=== PATIENT | male | born 1985 | race Caucasian/White ===

== ENCOUNTER 2016-09-14 17:31 | Emergency (ER) | payer BC ==
[~2016-09-14 17:31] MED LIST: ALBUTEROL17 GM INH; ELIQUIS PO; FLEXERIL10 MG PO; MUSCLE RELAXANT PO; NAPROSYN500 MG PO; NO MEDICATIONS; PERCOCET 7.5MG PO; PREDNISONE PO; ROBITUSSIN100 MG/51 PO; SILVADENE TOP; TESSALON200 MG PO; VOLTAREN75 MG PO; ZANAFLEX4 M1 PO; ZITHROMAX PO
[2016-09-14 18:22] LABS: BASOPHIL# 0.1 X10e3 (0-0.3); BASOPHIL% 0.8 % (0-2.5); EOSINOPHIL# 0.2 X10e3 (0-0.7); EOSINOPHIL% 2.1 % (0.0-7.0); HEMATOCRIT 43.6 % (38.0-50.0); HEMOGLOBIN 14.7 gm/dL (13.0-16.0); LYMPHOCYTE# 3.8 X10e3 (1.0-3.5); LYMPHOCYTE% 35.4 % (17.0-45.0); MEAN CELL VOLUME 91.6 FL (83-96); MEAN CORPUSCULAR HEMOGLOBIN 30.9 PG (28-34); MEAN CORPUSCULAR HGB CONC 33.7 g/dL (30-36); MEAN PLATELET VOLUME 7.6 FL (6.5-11.5); MONOCYTE# 0.7 X10e3 (0-1.0); NEUTROPHIL# 6.1 X10e3 (1.5-7.1); NEUTROPHIL% 55.7 % (40-75); PLATELET COUNT 282 X10e3 (140-420); RED BLOOD COUNT 4.76 X10e (3.90-5.60); RED CELL DISTRIBUTION WIDTH 12.3 % (11.0-15.5); WHITE BLOOD COUNT 10.9 X10e3 (4.0-10.5)
[2016-09-14 18:23] LABS: DIFF IND NO
== END 2016-09-14 18:30 | disposition home or self-care (01) ==
LOC: CED 17:31
PROVIDERS: Emergency Medicine
DX: K64.8 Other hemorrhoids (principal); J45.909 Unspecified asthma, uncomplicated; F17.200 Nicotine dependence, unspecified, uncomplicated; Z86.718 Personal history of other venous thrombosis and embolism; Z98.890 Other specified postprocedural states; Z79.01 Long term (current) use of anticoagulants
CPT/HCPCS: 85025; 99283